=== PATIENT | female | born 1985 | race Caucasian/White ===

== ENCOUNTER 2023-09-06 15:33 | Outpatient (AMB) | payer OTHER, SELFPAY ==
--- NOTE | 2023-09-06 15:38 | A.OFFVIS_ITS ---
Intake Vital Signs 09/06/23 15:39 Height 5 ft 5 in Weight 292 lb BMI 48.6 BP 134/70 Blood Pressure Location Rt brachial Position Sitting Pulse 80 Pulse Source Pulse Oximeter Pulse Oximetry (%) 100 Oxygen Delivery Method Room Air Intake Visit Reasons: Cough/Asthma Animal Shelter Clerk Required: No Bedspread Folder: Bedspread Folder offered & declined Accompanied by: Self / Same As Patient Allergies sulfamethoxazole [From Bactrim] Allergy (Severe, Verified 09/06/23 15:44) Rash trimethoprim [From Bactrim] Allergy (Severe, Verified 09/06/23 15:44) Rash Medication List - Last Reconciled 09/06/23 by Grace Roldan LPN albuterol sulfate 90 mcg/actuation 2 puffs inhalation Q4-6H PRN lisinopril 10 mg PO DAILY metoprolol succinate ER 50 mg PO DAILY HPI Cough/Asthma HPI Details Tommy is a pleasant 38 year old female, never smoker, with underlying hypertension. She was referred for pulmonary evaluation after multiple episodes of prolonged coughing after an URI last October. She reports intermittent dry cough with associated hoarseness. She has been prescribed prednisone in the past with resolution of symptoms. She was last prescribed prednisone about 3 weeks ago. Of note, she does have two small children that are in daycare and she works as a teacher, so she is exposed to various viral infections. She denies any personal or family history of respiratory conditions. She does report allergies and ezcema. In the past, it has been recommended to trial Flonase and an antihistamine. She denies having any pets. Today she notes a two day history of persistent dry cough and hoarseness. She used albuterol yesterday with mild improvement in symptoms. She is not on a daily maintenance inhaler. [facility] Social History (Updated 09/06/23 @ 15:46 by Grace Roldan LPN) Patient Tobacco Use Status: Never used Tobacco Review of Systems Const Denies chills, Denies excessive sweating, Denies fever(s), Denies headache(s) and Denies night sweats Eyes Denies dry eyes, Denies irritation and Denies itchy eyes ENT Reports Normal hearing present and Denies headache(s) Card Denies chest pain, Denies chest pain at rest, Denies chest pain with activity, Denies claudication, Denies leg edema, Denies orthopnea and Denies paroxysmal nocturnal dyspnea Resp Denies chest congestion, Denies excessive phlegm production, Denies pain on inspiration, Denies pain with cough, Denies stridor and Denies wheezing Musc Denies myalgias Neuro Reports Normal hearing present and Denies headache(s) Endo Denies excessive sweating Chano/Lymph Denies lymphadenopathy Aller/Immun Denies itchy eyes and Denies wheezing Physical Exam Vital Signs: Last Vital Signs Pulse 80 09/06/23 15:39 BP 134/70 09/06/23 15:39 Pulse Ox 100 09/06/23 15:39 Oxygen Delivery Method Room Air 09/06/23 15:39 BMI result Body Mass Index 48.6 Const General: cooperative, healthy appearing, comfortable, no acute distress, well developed and alert Nutritional Appearance: obese Orientation/consciousness: patient oriented x3 Limitations: no limitations HEENT Head: Yes normal to inspection, Yes normocephalic and Yes atraumatic Ears: hearing grossly normal bilaterally and external ears normal Eyes General: appearance normal, both eyes and all related structures Eyelids: Yes eyelids normal Sclerae: sclerae normal EOM: EOMs intact bilaterally Neck Neck: Yes normal visual inspection and Yes no lymphadenopathy Lymphatic: no lymphadenopathy noted Chest Chest palpation & inspection: normal inspection of the chest Resp Other: diminished lung sounds, post exhalation cough and persistent dry cough throughout visit, lung sounds improved and cough resolved after nebulizer. Effort & Inspection: normal respiratory effort, able to speak in complete sentences, no audible wheezes, no stridor, not tachypneic, no tripod positioning and no use of accessory muscles Cardio Jugular venous distension: no JVD Rate: regular rate Rhythm: regular rhythm Skin Other: warm, dry General skin exam: no rashes or lesions noted Neuro General: patient oriented x3 Cranial nerves: Yes Normal hearing present Cognition (Neuro): normal cognition Gait exam (Neuro): Normal gait present Extrem General: Yes normal to inspection, Yes capillary refill normal, Yes no clubbing, cyanosis or edema and Yes no pedal edema Psych Appearance: grossly normal and well kempt Speech and movement: Normal speech and movement present and Clear speech present Affect: normal affect Attitude: cooperative Thought process: Normal thought process present Thought content: Normal thought content present Insight: Good insight present (Psych) Judgement: Good judgement present (Psych) Office Procedures Nebulizer Treatment Nebulizer Treatment 17742-[id number]/MDI RX initial, or Nebulizer Subsequent Treatment Office Meds albuterol sulfate 2.5 mg/3 mL (0.083 %) solution for nebulization Performing Provider: Carmelita Santana NP Performing Location: [facility] [place] [facility]ology [facility] Administered by: Grace Roldan LPN on 09/06/23 16:22 Dose Route Admin Location Dispensed Lot Number Expiration Date [facility] Scre[employer] Machine Set Up Operator Tool 2.5 mg inhalation 3 mL [id number] 08/29/24 3369-6372-68 [facility] Assessment & Plan Assessment & Plan (1) Cough: Code(s): R05.9 - Cough, unspecified (2) Environmental allergies: Code(s): Z91.09 - Other allergy status, other than to drugs and biological substances Plan Stephanie's symptoms are likely related to underlying reactive airway disease/asthma with an allergic component. Will send for PFT as well as labs to evaluate. Patient with two day history of persistent cough with faint wheezing. Will send in prednisone. PCP ordered CXR and patient plans to obtain in the next few days. Discussed empirically starting a daily inhaler but she would like to trial an antihistamine, nasal spray and albuterol PRN. She is aware if she responds well to albuterol and uses frequently, she should call for a maintenance inhaler. All questions were answered and patient is in agreement of plan. Will follow up in 2-3 months to review results. Orders: Orders Rast Allergen 09/06/23 Z91.09 - Other allergy status, other than to drugs and biological substances Complete Blood Count Auto Diff 09/06/23 Z91.09 - Other allergy status, other than to drugs and biological substances Immunoglobulin E 09/06/23 Z91.09 - Other allergy status, other than to drugs and biological substances AMB Nebulizer Treatment 09/06/23 Z91.09 - Other allergy status, other than to drugs and biological substances PFT pulmonary function test 09/06/23 R05.9 - Cough, unspecified Medications: New prednisone 40 mg (2 x 20 mg) PO DAILY 10 tabs 0RF Coding Level of Care Code New Pt Level 4 (92596) Diagnoses Cough R05.9 Environmental allergies Z91.09 CPT Codes Nebulizer Treatment - Nebulizer Treatment, initial or subsequent: 10280- Nebulizer/MDI RX initial, or Nebulizer Subsequent Treatment ([id number])
[2023-09-06 15:39] VITALS: BP 134/70; PULSE 80; O2SAT 100; BMI 48.6
== END 2023-09-06 16:35 | disposition home or self-care (01) ==
PROVIDERS: PCP Internal Medicine; Referring Provider Nurse Practitioner Primary Care; Visit Provider Nurse Practitioner Family
DX: R05.9 Cough, unspecified (principal); Z91.09 Other allergy status, other than to drugs and biological substances
CPT/HCPCS: 99204

== ENCOUNTER → 2023-09-06 15:33 | Outpatient (BNVA) | payer OTHER, SELFPAY | PROVIDERS: PCP Internal Medicine; Referring Provider Nurse Practitioner Primary Care; Visit Provider Nurse Practitioner Family | DX: R05.9 Cough, unspecified (principal); Z91.09 Other allergy status, other than to drugs and biological substances | CPT/HCPCS: 94640 ==

== ENCOUNTER 2023-10-28 12:43 | Outpatient (REF) | payer OTHER, SELFPAY ==
--- NOTE | 2023-10-28 13:44 | PFT_ITS ---
Indication: Asthma Spirometry [FEV1 to FVC 84%; FEV1 2.58 L; FVC 3.09 L. No significant response to bronchodilators noted. Maximum voluntary ventilation 102% predicted] Lung Volumes [Total lung capacity 73% predicted; expiratory reserve volume 46% predicted] Diffusion Capacity [DLCO 102% predicted] Comparisons [none] Interpretation [No obstructive ventilatory defects identified. No significant response to bronchodilators noted. Normal maximum voluntary ventilation. The patient does have a mild restrictive ventilatory defect. In part due to an elevated BMI with a decrease in the expiratory reserve volume. Normal diffusing capacity. Clinical correlation warranted.] MTDD
== END 2023-10-28 12:44 | disposition home or self-care (01) ==
LOC: HO.RESP 12:43
PROVIDERS: Visit Provider Nurse Practitioner Family
DX: R05.9 Cough, unspecified (principal)
CPT/HCPCS: 94010; 94727; 94729

== ENCOUNTER → 2023-10-28 13:44 | Outpatient (BNV) | payer OTHER, SELFPAY | PROVIDERS: Visit Provider Hospitalist | DX: R05.9 Cough, unspecified (principal) | CPT/HCPCS: 94060; 94727; 94729 ==

== ENCOUNTER 2024-03-06 13:31 | Outpatient (AMB) | payer OTHER, SELFPAY ==
[2024-03-06 13:34] VITALS: BP 142/90; PULSE 90; O2SAT 99; BMI 49.3
--- NOTE | 2024-03-06 13:34 | A.OFFVIS_ITS ---
Vital Signs 03/06/24 13:34 Height 5 ft 5 in Weight 296 lb 8 oz BMI 49.3 BP 142/90 H Blood Pressure Location Rt brachial Position Sitting Pulse 90 Pulse Source Pulse Oximeter Pulse Oximetry (%) 99 Oxygen Delivery Method Room Air Intake Visit Reasons: Cough Allergies sulfamethoxazole [From Bactrim] Allergy (Severe, Verified 03/06/24 13:37) Rash trimethoprim [From Bactrim] Allergy (Severe, Verified 03/06/24 13:37) Rash HPI HPI Cough: Details: Stephanie is a pleasant 38 year old female, never smoker, with underlying hypertension. She was referred for pulmonary evaluation after multiple episodes of prolonged coughing after an URI last October. She reports intermittent dry cough with associated hoarseness. Since the last visit, she has been switched from lisinopril to losartan with resolution of cough. She has been quite active at the gym, experiencing fatigue/dyspnea with moderate to heavy exertion otherwise denies symptoms. Today she presents to review PFT. [facility] Social History Patient Tobacco Use Status: Never used Tobacco Review of Systems Const Denies chills, Denies excessive sweating, Denies fever(s), Denies headache(s) and Denies night sweats Eyes Denies dry eyes, Denies irritation and Denies itchy eyes ENT Reports Normal hearing present, Denies headache(s), Denies nasal congestion, Denies nasal discharge, Denies post nasal drip and Denies sore throat Card Denies chest pain, Denies chest pain at rest, Denies chest pain with activity, Denies claudication, Denies leg edema, Denies orthopnea and Denies paroxysmal nocturnal dyspnea Resp Denies chest congestion, Denies cough, Denies excessive phlegm production, Denies pain on inspiration, Denies pain with cough, Denies stridor and Denies wheezing Musc Denies myalgias Neuro Reports Normal hearing present and Denies headache(s) Endo Denies excessive sweating Chano/Lymph Denies lymphadenopathy Aller/Immun Denies itchy eyes, Denies seasonal rhinorrhea and Denies wheezing Physical Exam Vital Signs: Last Vital Signs Pulse 90 03/06/24 13:34 BP 142/90 H 03/06/24 13:34 Pulse Ox 99 03/06/24 13:34 Oxygen Delivery Method Room Air 03/06/24 13:34 BMI result Body Mass Index 49.3 Const General: cooperative, healthy appearing, comfortable, no acute distress, well developed and alert Nutritional Appearance: obese Orientation/consciousness: patient oriented x3 Limitations: no limitations HEENT Head: Yes normal to inspection, Yes normocephalic and Yes atraumatic Ears: hearing grossly normal bilaterally and external ears normal Eyes General: appearance normal, both eyes and all related structures Eyelids: Yes eyelids normal Sclerae: sclerae normal EOM: EOMs intact bilaterally Neck Neck: Yes normal visual inspection and Yes no lymphadenopathy Lymphatic: no lymphadenopathy noted Chest Chest palpation & inspection: normal inspection of the chest Resp Effort & Inspection: normal respiratory effort, able to speak in complete sentences, no audible wheezes, no cough, no stridor, not tachypneic, no tripod positioning and no use of accessory muscles Auscultation: clear to auscultation bilaterally Cardio Jugular venous distension: no JVD Rate: regular rate Rhythm: regular rhythm Skin Other: warm, dry General skin exam: no rashes or lesions noted Neuro General: patient oriented x3 Cranial nerves: Yes Normal hearing present Cognition (Neuro): normal cognition Gait exam (Neuro): Normal gait present Extrem General: Yes normal to inspection, Yes capillary refill normal, Yes no clubbing, cyanosis or edema and Yes no pedal edema Psych Appearance: grossly normal and well kempt Speech and movement: Normal speech and movement present and Clear speech present Affect: normal affect Attitude: cooperative Thought process: Normal thought process present Thought content: Normal thought content present Insight: Good insight present (Psych) Judgement: Good judgement present (Psych) Assessment & Plan Assessment & Plan (1) Restrictive ventilatory defect: Code(s): R94.2 - Abnormal results of pulmonary function studies Category: Medical (2) Environmental allergies: Code(s): Z91.09 - Other allergy status, other than to drugs and biological substances Category: Medical Plan Reviewed PFT which did not reveal an obstructive ventilatory defect. There was no significant response to bronchodilators. There was a mild restrictive ventilatory defect, in part due to an elevated BMI with a decrease in the expiratory reserve volume. Normal diffusing capacity. At this time, patient reports resolution of cough with switching to losartan and reports dyspnea with moderate to heavy exertion while exercising, otherwise denies symptoms. She is aware weight is a contributing factor and is motivated to work towards weight loss. There is no need for any respiratory medication at this time. All questions were answered and patient is in agreement of plan. Will follow up PRN. Coding Level of Care Code Est Pt Level 3 (25909) Diagnoses Restrictive ventilatory defect R94.2 Environmental allergies Z91.09
== END 2024-03-06 13:57 | disposition home or self-care (01) ==
PROVIDERS: PCP Nurse Practitioner Primary Care; Visit Provider Nurse Practitioner Family
DX: R94.2 Abnormal results of pulmonary function studies (principal); Z91.09 Other allergy status, other than to drugs and biological substances
CPT/HCPCS: 99213

== ENCOUNTER → 2024-03-06 13:31 | Outpatient (BNVA) | payer OTHER, SELFPAY | PROVIDERS: PCP Nurse Practitioner Primary Care; Visit Provider Nurse Practitioner Family ==